=== PATIENT | female | born 1975 | race Caucasian/White ===

== ENCOUNTER 2017-01-10 14:54 | Emergency (ER) | payer BC ==
[2005-03-01 02:03] VITALS: BP 97/57
[~2017-01-10] VITALS: Ht 162.6 cm; Wt 62.7 kg
[~2017-01-10 14:54] MED LIST: ALBUTEROL0.09 MG/A1 IH; AZITHROMYCIN; BENTYL 20MG TAB20 MG PO; CARAFATE PO; CELEXA 20MG20 MG/TAB PO; CIPRO 250MG TA250 MG PO; DITROPAN5 MG PO; FLAGYL500 MG PO; FLOMAX 0.40.4 MG/CAP PO; LEVAQUIN 250MG250 MG PO; LEXAPRO 10MG10 MG PO; LORTAB 5/500 501 TAB PO; LORTAB 7.5/5001 TAB PO; MULTI VITAMINS1 TAB PO; MVI; NO HOME MEDICATIONS; PEPCID 20MG TAB20 MG PO; PERCOCET 325 MG1 TA2 PO; PERCOCET 5/321 UDTAB PO; PHENERGAN 25 TA25 MG PO; PRENATAL VITAMI1 TA5 PO; PROTONIX 40MG T40 MG PO; TYLENOL 325MG325 MG PO; ULTRAM50 MG PO; ZOFRAN 4MG T4 MG/TAB PO
[2017-01-10 14:57] VITALS: TEMP 98.8
[2017-01-10 15:44] LABS: BASO % 0.2 % (0.0-2.0); EOS # 0.1 (0.0-0.7); EOS % 1.1 % (0-4.0); GRAN # 8.7 (1.4-6.5); GRAN % 73.1 % (42.2-75.2); LYMPH # 2.5 (1.2-3.4); LYMPH % 20.7 % (20.0-51.0); MEAN CELL VOLUME 88 fl (80.0-100.0); MEAN CORPUSCULAR HGB CONC 31 g/dl (33.0-37.0); MEAN PLATELET VOLUME 9.5 fl (7.4-10.4); MONO # 0.6 (0.1-0.6); MONO % 4.6 % (1.7-9.3); PLATELET COUNT 447 K/mm3 (130-400); RED BLOOD COUNT 3.81 M/mm3 (4.10-5.30); REDCELL DISTRIBUTION WIDTH-CV 15.6 % (11.5-14.5)
[2017-01-10 15:46] LABS: PH 6 (5-8); URINE APPEARANCE Hazy; URINE BACTERIA Occasional /hpf; URINE BILIRUBIN Negative (NEGATIVE); URINE BLOOD 3+ (NEGATIVE); URINE COLOR Amber; URINE GLUCOSE Negative (NEGATIVE); URINE KETONE Negative (NEGATIVE); URINE RBC >50 /hpf; URINE UROBILINOGEN >=4.0 mg/dL (NEGATIVE)
[2017-01-10 15:48] LABS: URINE WBC >50 /hpf
[2017-01-10 15:52] LABS: HEMATOCRIT 33.4 % (37.0-47.0); HEMOGLOBIN 10.2 g/dl (12.5-16.0); MEAN CORPUSCULAR HEMOGLOBIN 27 pg (27.0-31.0)
[2017-01-10] MEDS ORDERED: NORCO2.5 PO (16:09)
[2017-01-10] MEDS ORDERED: VESICARE10 MG PO (16:10)
[2017-01-10] MEDS ORDERED: CIPRO 100MG TA100 MG PO (16:11)
[2017-01-10] MEDS ORDERED: PYRIDIUM 100MG100 MG PO (16:12)
[2017-01-10] MEDS ORDERED: EFFEXOR-XR150 MG PO (16:13)
[2017-01-10 16:17] LABS: ADJUSTED CALCIUM 9.4 mg/dL (8.4-10.2); ALBUMIN 4.4 gm/dL (3.5-5.0); BILIRUBIN,TOTAL 0.6 mg/dL (0.0-1.0); C-REACTIVE PROTEIN 0.8 mg/dL (0.0-0.9); CALCIUM 9.7 mg/dL (8.4-10.2); CREATININE, serum 1.08 mg/dL (0.52-1.25); TOTAL PROTEIN 8.3 gm/dL (6.4-8.2)
[2017-01-10] MEDS ORDERED: ZOFRAN ODT4 MG PO (16:55)
[2017-01-10] MEDS ORDERED: CIPRO 500MG TA500 MG PO (18:03)
[2017-01-10 18:15] VITALS: BP 132/85; PULSE 98
== END 2017-01-10 18:15 | disposition home or self-care (01) ==
LOC: COL.ER 14:54
PROVIDERS: Family Medicine
DX: N23 Unspecified renal colic (principal); Z87.442 Personal history of urinary calculi; Z98.890 Other specified postprocedural states
CPT/HCPCS: J1170; J1885; J2405; J2550; J2930; J7030; J7040

== ENCOUNTER → 2017-10-10 | Outpatient (CLI) | payer BC ==
[~2017-10-10] MED LIST changes: +CIPRO 100MG TA100 MG PO; +CIPRO 500MG TA500 MG PO; +EFFEXOR-XR150 MG PO; +NORCO2.5 PO; +PYRIDIUM 100MG100 MG PO; +VESICARE10 MG PO; +ZOFRAN ODT4 MG PO
== END ==
LOC: MC.RAD 10:00
DX: Z12.31 Encounter for screening mammogram for malignant neoplasm of breast (principal)

== ENCOUNTER 2017-10-24 18:26 | Emergency (ER) | payer BC ==
[2005-03-01 02:03] VITALS: BP 97/57
[~2017-10-24] VITALS: Ht 162.6 cm; Wt 59.1 kg
[2017-10-24 18:33] VITALS: TEMP 97.7
[2017-10-24 19:06] LABS: BASO % 0.4 % (0.0-2.0); EOS % 0.5 % (0-4.0); GRAN # 4.2 (1.4-6.5); GRAN % 75.4 % (42.2-75.2); HEMOGLOBIN 10.2 g/dl (12.5-16.0); LYMPH # 1.1 (1.2-3.4); LYMPH % 19.1 % (20.0-51.0); MEAN CELL VOLUME 89 fl (80.0-100.0); MEAN CORPUSCULAR HEMOGLOBIN 26 pg (27.0-31.0); MEAN CORPUSCULAR HGB CONC 29 g/dl (33.0-37.0); MEAN PLATELET VOLUME 9.6 fl (7.4-10.4); MONO # 0.2 (0.1-0.6); MONO % 4.2 % (1.7-9.3); PLATELET COUNT 322 K/mm3 (130-400); REDCELL DISTRIBUTION WIDTH-CV 15.7 % (11.5-14.5)
[2017-10-24 19:07] LABS: HEMATOCRIT 34.7 % (37.0-47.0)
[2017-10-24] MEDS ORDERED: CIPRO 250MG TA250 MG PO (19:14)
[2017-10-24] MEDS ORDERED: ZOFRAN 4MG T4 MG/TAB PO (19:14)
[2017-10-24] MEDS ORDERED: NORCO 325 MG-7.1 TAB PO (19:15)
[2017-10-24 19:16] LABS: ALBUMIN 4.4 gm/dL (3.5-5.0); BILIRUBIN,TOTAL 0.7 mg/dL (0.0-1.0); C-REACTIVE PROTEIN 0.7 mg/dL (0.0-0.9); CALCIUM 9.5 mg/dL (8.4-10.2); CREATININE, serum 0.84 mg/dL (0.52-1.25); POTASSIUM 4.3 mmol/L (3.4-5.0); TOTAL PROTEIN 9.1 gm/dL (6.4-8.2)
[2017-10-24 23:30] VITALS: BP 128/83; PULSE 90
== END 2017-10-24 23:33 | disposition home or self-care (01) ==
LOC: COL.ER 18:26
PROVIDERS: Emergency Medicine
DX: N20.2 Calculus of kidney with calculus of ureter (principal); K52.9 Noninfective gastroenteritis and colitis, unspecified; Z87.442 Personal history of urinary calculi; Z90.49 Acquired absence of other specified parts of digestive tract; Z90.89 Acquired absence of other organs
CPT/HCPCS: J1170; J1885; J2060; J2405; J7030

== ENCOUNTER → 2019-01-07 | Outpatient (CLI) | payer BC ==
[~2019-01-07] MED LIST changes: +NORCO 325 MG-7.1 TAB PO
== END ==
LOC: COL.RAD 10:48
DX: N20.0 Calculus of kidney (principal); Z87.442 Personal history of urinary calculi

== ENCOUNTER → 2019-11-10 | Outpatient (CLI) | payer BC | LOC: ZCOL.LAB 22:50 | DX: Z20.828 Contact with and (suspected) exposure to other viral communicable diseases (principal) ==

== ENCOUNTER 2020-04-28 14:01 | Emergency (ER) | payer BC ==
[2005-03-01 02:03] VITALS: BP 97/57
[~2020-04-28] VITALS: Ht 162.6 cm; Wt 59.1 kg
[2020-04-28 14:05] VITALS: TEMP 98
[2020-04-28 15:44] LABS: COLLECTION METHOD CLEAN CATCH
[2020-04-28 15:57] LABS: AMORPHOUS CRYSTAL Present /uL; MUCOUS Present /lpf; PH 5 (5-8); SQUAMOUS EPITHELIAL 20-50 /hpf; URINE APPEARANCE Cloudy; URINE BACTERIA Rare /hpf; URINE BILIRUBIN Negative (NEGATIVE); URINE BLOOD 2+ (NEGATIVE); URINE COLOR Yellow; URINE GLUCOSE Negative (NEGATIVE); URINE KETONE Negative (NEGATIVE); URINE LEUKOCYTE ESTERASE Negative (NEGATIVE); URINE NITRATE Positive (NEGATIVE); URINE PROTEIN(semi-quant) Negative (NEGATIVE); URINE RBC 20-50 /hpf
[2020-04-28 15:58] LABS: BASO % 0.2 % (0.0-2.0); EOS # 0.1 (0.0-0.7); GRAN # 5.3 (1.4-6.5); GRAN % 65.6 % (42.2-75.2); HEMOGLOBIN 11.5 g/dl (12.5-16.0); LYMPH # 2.2 (1.2-3.4); LYMPH % 27.3 % (20.0-51.0); MEAN CELL VOLUME 99 fl (80.0-100.0); MEAN CORPUSCULAR HEMOGLOBIN 32 pg (27.0-31.0); MEAN CORPUSCULAR HGB CONC 32 g/dl (33.0-37.0); MEAN PLATELET VOLUME 8.9 fl (7.4-10.4); MONO # 0.4 (0.1-0.6); MONO % 5.4 % (1.7-9.3); PLATELET COUNT 333 K/mm3 (130-400); REDCELL DISTRIBUTION WIDTH-CV 16.2 % (11.5-14.5)
[2020-04-28 15:59] LABS: HEMATOCRIT 35.8 % (37.0-47.0)
[2020-04-28 16:13] LABS: ALANINE AMINOTRANSFERASE 12 U/L (4-34); ALKALINE PHOSPHATASE 53 U/L (50-136); ANION GAP 7 mmol/L (7-16); AST,SGOT 21 U/L (15-37); BILIRUBIN,TOTAL 0.3 mg/dL (0.0-1.0); BLOOD UREA NITROGEN 15 mg/dL (7-17); CARBON DIOXIDE 25 mmol/L (22-30); CHLORIDE 104 mmol/L (98-107); CREATININE, serum 1.08 (0.52-1.25); GLUCOSE 96 mg/dL (74-106); POTASSIUM 3.9 mmol/L (3.4-5.0); SODIUM 136 mmol/L (137-145); TOTAL PROTEIN 7.6 gm/dL (6.4-8.2)
[2020-04-28 16:45] LABS: C-REACTIVE PROTEIN < 0.5 mg/dL (0.0-0.9)
[2020-04-28 18:12] VITALS: BP 131/88; PULSE 86
== END 2020-04-28 18:30 | disposition home or self-care (01) ==
LOC: COL.ER 14:01
PROVIDERS: Emergency Medicine; Nurse Practitioner
DX: N20.0 Calculus of kidney (principal); Z87.442 Personal history of urinary calculi; Z88.6 Allergy status to analgesic agent; Z88.2 Allergy status to sulfonamides
CPT/HCPCS: J0696; J1170; J1885; J2405; J7030; Q9967

== ENCOUNTER 2020-05-19 19:42 | Emergency (ER) | payer BC ==
[2005-03-01 02:03] VITALS: BP 97/57
[~2020-05-19] VITALS: Ht 162.6 cm; Wt 61.4 kg
[2020-05-19 20:05] VITALS: TEMP 97.9
[2020-05-20 01:13] VITALS: BP 121/73; PULSE 83
== END 2020-05-20 01:22 | disposition home or self-care (01) ==
LOC: COL.ER 19:42
DX: N20.0 Calculus of kidney (principal); Z87.442 Personal history of urinary calculi; Z88.6 Allergy status to analgesic agent; Z88.2 Allergy status to sulfonamides
CPT/HCPCS: J0595; J2405; J3010; J7030

== ENCOUNTER 2021-09-02 09:21 | Day surgery (SDC) | payer BC ==
[2005-03-01 02:03] VITALS: BP 97/57
[~2021-09-02] VITALS: Ht 162.6 cm; Wt 56.7 kg
[2021-09-02] MEDS ORDERED: PROTONIX 40MG T40 MG PO (09:34)
[2021-09-02] MEDS ORDERED: VITAMIN B12 681 TAB PO (09:35)
[2021-09-02] MEDS ORDERED: MERIBIN5 MG PO (09:35)
[2021-09-02 10:01] VITALS: BP 120/82; PULSE 91; TEMP 98.2
[2021-09-02 11:15] VITALS: BP 112/68; PULSE 76; TEMP 96.9
--- NOTE | 2021-09-02 11:15 | NUR ---
Pt arrived from procedure drowsy but oriented. Pt assisted with ambulating to chair from cart, gait is mildly unsteady. Vitals obtained. Warm blankets provided. S02 was not reading until warm blankets applied to hand, current S02 at 99% on room air. Muffin and water provided per pt request. Call villar is within reach.
[2021-09-02 11:30] VITALS: BP 117/76; PULSE 75
--- NOTE | 2021-09-02 11:30 | NUR ---
Vitals obtained. Call villar is within reach. Pt has had about half her muffin. Denies nausea. No vomiting.
--- NOTE | 2021-09-02 11:35 | NUR ---
is speaking with pt and visitor.
[2021-09-02 11:45] VITALS: BP 120/83; PULSE 82
--- NOTE | 2021-09-02 11:45 | NUR ---
Vitals obtained. Pt expressed desire to be discharged. Call villar remains within reach.
--- NOTE | 2021-09-02 12:00 | NUR ---
IV discontined. Catheter tip intact. Pressure dressing applied. No redness or swelling noted. DC instructions and educational material reviewed with pt, who verbalized understanding and signed the related paperwork. Questions answered. Pt denied needing assistance changing into personal clothes. Call villar is within reach on side table.
--- NOTE | 2021-09-02 12:30 | NUR ---
Pt dismissed from endo via wheelchair to the pt entrence by Amber CHARLES. Pt has DC packet and personal belonings and was transferred into the care of her visitor, who is present to drive.
== END 2021-09-02 12:30 | disposition home or self-care (01) ==
LOC: SDCO 09:21
DX: D50.9 Iron deficiency anemia, unspecified (principal); K56.41 Fecal impaction; K92.1 Melena; K29.50 Unspecified chronic gastritis without bleeding; K29.80 Duodenitis without bleeding; K44.9 Diaphragmatic hernia without obstruction or gangrene; E53.8 Deficiency of other specified B group vitamins; R63.4 Abnormal weight loss; R19.4 Change in bowel habit; Z79.899 Other long term (current) drug therapy; Z80.0 Family history of malignant neoplasm of digestive organs
CPT/HCPCS: J2704; J7120

== ENCOUNTER 2021-09-09 06:48 | Day surgery (SDC) | payer BC ==
[2005-03-01 02:03] VITALS: BP 97/57
[~2021-09-09] VITALS: Ht 162.6 cm; Wt 55.2 kg
[~2021-09-09 06:48] MED LIST changes: +MERIBIN5 MG PO; +VITAMIN B12 681 TAB PO
[2021-09-09 08:50] VITALS: BP 116/62; PULSE 80; TEMP 97
[2021-09-09 09:00] VITALS: BP 112/72; PULSE 77
[2021-09-09 09:15] VITALS: BP 114/76; PULSE 76
[2021-09-09 09:30] VITALS: BP 116/63; PULSE 79
[2021-09-09 09:45] VITALS: BP 110/70; PULSE 86
--- NOTE | 2021-09-09 10:10 | NUR ---
Pt returned via cart to recliner in bay post procedure. Tolerated oral intake. VSS-see flowsheet. IV removed, pressure dressing applied. Discharge teaching completed, pt and pts verbalized understanding. Pt dressed and taken via wheelchair to private vehicle for dc home with driving.
[2021-09-09 17:36] VITALS: BP 129/83; PULSE 82; TEMP 97.9
== END 2021-09-09 10:10 | disposition home or self-care (01) ==
LOC: SDCO 06:48
DX: D12.5 Benign neoplasm of sigmoid colon (principal); K59.00 Constipation, unspecified; D50.9 Iron deficiency anemia, unspecified; R63.4 Abnormal weight loss; Z85.820 Personal history of malignant melanoma of skin; Z80.0 Family history of malignant neoplasm of digestive organs
CPT/HCPCS: J2704; J7030

== ENCOUNTER → 2021-12-07 | Outpatient (CLI) | payer BC | LOC: COL.RAD 07:30 | DX: N20.2 Calculus of kidney with calculus of ureter (principal) ==

== ENCOUNTER 2023-08-10 11:09 | Day surgery (SDC) | payer BC ==
[~2023-08-10] VITALS: Ht 162.6 cm; Wt 62.2 kg
[~2023-08-10 11:09] MED LIST changes: +ADVIL200 MG PO; +LR 1,000 ML IV SCH; +NATURE'S BLEND600 M2 PO; +NORCO 325 MG-51 TAB PO; +Ondansetron 4 MG/2 ML VIAL IV PRN
[2023-08-10] MEDS ORDERED: CEPHALEXIN500 M1 PO (11:43)
[2023-08-10] MEDS ORDERED: VYVANSE30 MG PO (11:46)
[2023-08-10 12:11] VITALS: BP 125/78; PULSE 74; TEMP 98.6
[2023-08-10] MEDS ORDERED: Lidocaine PF 2% (20 MG/ML) 5 ML VIAL ONE (12:11)
[2023-08-10 13:05] VITALS: BP 132/77; PULSE 72; TEMP 98.2
[2023-08-10 13:20] VITALS: BP 120/87; PULSE 76
--- NOTE | 2023-08-10 13:35 | NUR ---
1305 RETURNS TO ROOM 8 PER CART. AWAKE, ALERT. RESP UNLABORED. AMBULATES TO RECLINER WITH STANDBY ASSIST. DENIES NAUSE, ABD/CHEST PAIN OR DYSPHAGIA. IV SITE DC'D IN PROCEDURE ROOM VITAL SIGNS OBTAINED. IN ROOM 1306 DR. DIAZ HERE TO VISIT WITH PATIENT 1320 TOL[address] PO JUICE WITHOUT NAUSEA. SWALLOWS WITHOUT DIFFICULTY 1328 DISCHARGE INSTRUCTIONS REVIEWED, INCLUDING EDUCATION ON OBSERVATION OF IV SITE INFILTRATION, AND EDUCATED ON APPLYING WARM MOIST COMPRESSES TO SITE. PATIENT VERBALIZES UNDERSTANDING. COPY PROVIDED IN DISCHARGE FOLDER 1333 DRESSES SELF
== END 2023-08-10 13:39 | disposition home or self-care (01) ==
LOC: SDCO 11:09
DX: K29.80 Duodenitis without bleeding (principal); K63.89 Other specified diseases of intestine; R71.8 Other abnormality of red blood cells; D80.2 Selective deficiency of immunoglobulin A [IgA]; K63.9 Disease of intestine, unspecified; Z80.0 Family history of malignant neoplasm of digestive organs; K04.7 Periapical abscess without sinus; Z79.2 Long term (current) use of antibiotics; Z79.899 Other long term (current) drug therapy
CPT/HCPCS: J2704; J7120

== ENCOUNTER → 2023-09-05 | Outpatient (CLI) | payer BC ==
[~2023-09-05] MED LIST changes: +CEPHALEXIN500 M1 PO; -LR 1,000 ML IV SCH; -Ondansetron 4 MG/2 ML VIAL IV PRN; +VYVANSE30 MG PO
== END ==
LOC: COL.RAD 09:34
DX: D50.9 Iron deficiency anemia, unspecified (principal)

== ENCOUNTER → 2023-10-04 | Outpatient (CLI) | payer BC ==
[~2023-10-04] MED LIST changes: +B12 PO; +VITAMIN D PO
== END ==
LOC: MC.RAD 09:24
DX: Z12.31 Encounter for screening mammogram for malignant neoplasm of breast (principal)